=== PATIENT | female | born 1965 | race Caucasian/White ===

== ENCOUNTER 2017-06-26 14:13 | Emergency (ER) | payer BC ==
[~2017-06-26] VITALS: Ht 162.6 cm; Wt 65.0 kg
[2017-06-26 14:16] VITALS: TEMP 98
[2017-06-26] MEDS ORDERED: DOXYCYCLINE HY100 MG PO (14:19)
[2017-06-26] MEDS ORDERED: COMPAZINE 110 MG/TAB PO (16:16)
[2017-06-26 17:00] VITALS: BP 135/78; PULSE 74
== END 2017-06-26 17:08 | disposition home or self-care (01) ==
LOC: COL.ER 14:13
DX: R51 Headache (principal)
CPT/HCPCS: J0780; J1200; J7030

== ENCOUNTER 2017-07-01 20:01 | Emergency (ER) | payer BC ==
[~2017-07-01] VITALS: Ht 162.6 cm; Wt 65.0 kg
[~2017-07-01 20:01] MED LIST: COMPAZINE 110 MG/TAB PO; DOXYCYCLINE HY100 MG PO
[2017-07-01 20:02] VITALS: BP 149/80; TEMP 97.1
[2017-07-01 21:09] LABS: COLLECTION METHOD CLEAN CATCH
[2017-07-01 21:24] LABS: MUCOUS Present /lpf; PH 7 (5-8); SQUAMOUS EPITHELIAL None Seen /hpf; URINE APPEARANCE Hazy; URINE BACTERIA Rare /hpf; URINE BILIRUBIN Negative (NEGATIVE); URINE BLOOD Negative (NEGATIVE); URINE COLOR Blue; URINE GLUCOSE Negative (NEGATIVE); URINE KETONE Negative (NEGATIVE); URINE LEUKOCYTE ESTERASE Negative (NEGATIVE); URINE NITRATE Negative (NEGATIVE); URINE PROTEIN(semi-quant) Negative (NEGATIVE); URINE RBC 0-2 /hpf; URINE UROBILINOGEN Negative (NEGATIVE)
[2017-07-01 21:33] LABS: BASO % 0.5 % (0.0-2.0); EOS % 0.5 % (0-4.0); GRAN # 5.7 (1.4-6.5); GRAN % 71.4 % (42.2-75.2); HEMOGLOBIN 13.6 g/dl (12.5-16.0); LYMPH # 1.6 (1.2-3.4); LYMPH % 20.1 % (20.0-51.0); MEAN CELL VOLUME 88 fl (80.0-100.0); MEAN CORPUSCULAR HEMOGLOBIN 30 pg (27.0-31.0); MEAN CORPUSCULAR HGB CONC 34 g/dl (33.0-37.0); MEAN PLATELET VOLUME 9.6 fl (7.4-10.4); MONO # 0.6 (0.1-0.6); MONO % 7.1 % (1.7-9.3); PLATELET COUNT 405 K/mm3 (130-400); RED BLOOD COUNT 4.54 M/mm3 (4.10-5.30); REDCELL DISTRIBUTION WIDTH-CV 12.2 % (11.5-14.5)
[2017-07-01 21:36] LABS: ALBUMIN 4.8 gm/dL (3.5-5.0); BILIRUBIN,TOTAL 0.4 mg/dL (0.0-1.0); CALCIUM 10.4 mg/dL (8.4-10.2); CREATININE, serum 0.76 mg/dL (0.52-1.25); POTASSIUM 3.7 mmol/L (3.4-5.0); TOTAL PROTEIN 8.4 gm/dL (6.4-8.2)
[2017-07-01 22:29] LABS: TRICYCLIC ANTIDEPRESS URINE NEGATIVE
[2017-07-01 23:42] VITALS: PULSE 92
== END 2017-07-01 23:43 | disposition home or self-care (01) ==
LOC: COL.ER 20:01
PROVIDERS: Nurse Practitioner Primary Care
DX: R53.81 Other malaise (principal); R42 Dizziness and giddiness; J40 Bronchitis, not specified as acute or chronic

== ENCOUNTER → 2017-10-17 | Outpatient (CLI) | payer BC | LOC: MC.RAD 11:39 | DX: Z12.31 Encounter for screening mammogram for malignant neoplasm of breast (principal) ==

== ENCOUNTER 2020-02-27 09:15 | Outpatient (RCR) | payer BC | END 2020-03-10 14:43 | disposition home or self-care (01) | LOC: WSC 09:15 | DX: M54.10 Radiculopathy, site unspecified (principal); R29.3 Abnormal posture ==

== ENCOUNTER → 2020-03-03 | Outpatient (CLI) | payer BC | LOC: MC.RAD 09:15 | DX: Z12.31 Encounter for screening mammogram for malignant neoplasm of breast (principal) ==

== ENCOUNTER 2020-03-27 14:15 | Outpatient (RCR) | payer BC | END 2020-06-01 | disposition home or self-care (01) | LOC: WSC | DX: S76.011A Strain of muscle, fascia and tendon of right hip, initial encounter (principal); S76.012A Strain of muscle, fascia and tendon of left hip, initial encounter ==

== ENCOUNTER 2020-10-30 14:00 | Outpatient (RCR) | payer BC | END 2020-12-13 | disposition home or self-care (01) | LOC: PT.GENESIS | DX: M54.12 Radiculopathy, cervical region (principal); M65.30 Trigger finger, unspecified finger ==

== ENCOUNTER 2021-03-02 12:45 | Outpatient (RCR) | payer BC | END 2021-03-29 | disposition home or self-care (01) | LOC: PT.GENESIS | DX: M54.12 Radiculopathy, cervical region (principal) ==

== ENCOUNTER → 2021-05-11 | Outpatient (CLI) | payer BC | LOC: MC.RAD 16:15 | DX: Z12.31 Encounter for screening mammogram for malignant neoplasm of breast (principal) ==

== ENCOUNTER 2022-07-25 13:33 | Outpatient (RCR) | payer BC | END 2022-07-26 | LOC: WSOT | DX: M25.521 Pain in right elbow (principal) ==

== ENCOUNTER 2022-08-22 13:30 | Outpatient (RCR) | payer BC | END 2022-08-26 | disposition home or self-care (01) | LOC: WSOT | DX: M25.521 Pain in right elbow (principal) ==

== ENCOUNTER 2023-02-20 12:48 | Outpatient (RCR) | payer BC | END 2023-02-25 | disposition home or self-care (01) | LOC: WSOT | DX: M25.521 Pain in right elbow (principal) ==